=== PATIENT | female | born 1955 | race Native Hawaiian/Other Pacific Islander ===

== ENCOUNTER 2023-10-20 09:43 | Emergency (ER) | payer BC ==
[2023-10-20 10:15] VITALS: BP 138/81; O2SAT 98
[2023-10-20 10:42] LABS: RAPID STREP SCREEN Negative (Negative)
[2023-10-20 11:31] LABS: B. PARAPERTUSSIS- RESP PCR PAN NOT DETECTED; B. PERTUSSIS- RESP PCR PANEL NOT DETECTED; C. PNEUMONIAE- RESP PCR PANEL NOT DETECTED; CORONAVIRUS 229E-RESP PCR NOT DETECTED; CORONAVIRUS HKU1-RESP PCR NOT DETECTED; CORONAVIRUS NL63-RESP PCR NOT DETECTED; CORONAVIRUS OC43-RESP PCR NOT DETECTED; HUMAN METAPNEUMOVIRUS NOT DETECTED; INFLUENZA A- RESP PCR PANEL NOT DETECTED; INFLUENZA B - RESP PCR PANEL NOT DETECTED; M. PNEUMONIAE- RESP PCR PANEL NOT DETECTED; PARAINFLUENZA VIRUS 1 NOT DETECTED; PARAINFLUENZA VIRUS 2 NOT DETECTED; PARAINFLUENZA VIRUS 3 NOT DETECTED; PARAINFLUENZA VIRUS 4 NOT DETECTED; RHINOVIRUS/ENTEROVIRUS NOT DETECTED; RSV- RESP PCR PANEL NOT DETECTED
[2023-10-20 11:33] LABS: SARS-CoV-2 -RESP PCR PANEL DETECTED
--- NOTE | 2023-10-20 11:35 | ED Physician Documentation ---
PD HPI URI - Stated complaint Stated Complaint: SORE THROAT,COUGH,FATIGUE,FEVER - Chief complaint Chief Complaint: Heent - Additional information Additional information: 68-year-old female presents emergency department with her for flulike symptoms. Patient says that symptom onset was around the 15th after traveling recently. She complains of sore throat cough fever chills and fatigue. She says she took some at home test that were negative for COVID but wanted to have a further evaluation here in the emergency department to see if there is nothing else that she caught. No significant comorbidities no significant comorbidities no Pertinent past medical history she says overall she is feeling better. When offered Tylenol or ibuprofen or dexamethasone for her sore throat patient declines and says that they feel comfortable discharging knowing that they have COVID and that there is not significant mortality relation with the current strain that is going around. PD PAST MEDICAL HISTORY - Past Medical History Past Medical History: No - Past Surgical History Ortho: Hip replacement /[employer]: section, Other - Allergies Allergies/Adverse Reactions: Allergies Allergy/AdvReac Type Severity Reaction Status Date / Time No Known Drug Allergies Allergy Verified 10/20/23 10:10 - Social History Does the pt smoke?: No Smoking Status: Never smoker Does the pt drink ETOH?: Yes Does the pt have substance abuse?: No - Immunizations Immunizations are current?: Yes - POLST Patient has POLST: No PD ED PE NORMAL - Vitals Vital signs reviewed: Yes - General General: Alert and oriented X 3, No acute distress, Well developed/nourished - HEENT HEENT: Atraumatic - Neck Neck: Supple, no meningeal sign - Cardiac Cardiac: RRR - Respiratory Respiratory: No respiratory distress, Clear bilaterally - Abdomen Abdomen: Normal bowel sounds Results - Vitals Vitals: Vital Signs - 24 hr 10/20/23 10:06 Temperature 37.5 C Heart Rate 68 Respiratory 20 Rate Blood Pressure 138/81 H O2 Saturation 98 Oxygen O2 Source Room air - Labs Labs: Laboratory Tests 10/20/23 10/20/23 10:21 10:21 Nasal Adenovirus (PCR) NOT DETECTED Nasal B. parapertussis DNA (PCR) NOT DETECTED Nasal Coronavir 229E PCR NOT DETECTED Nasal Coronavir HKU1 PCR NOT DETECTED Nasal Coronavir NL63 PCR NOT DETECTED Nasal Coronavir OC43 PCR NOT DETECTED Nasal Enterovir/Rhinovir PCR NOT DETECTED Nasal Influenza B PCR NOT DETECTED Nasal Influenza A PCR NOT DETECTED Nasal Parainfluen 1 PCR NOT DETECTED Nasal Parainfluen 2 PCR NOT DETECTED Nasal Parainfluen 3 PCR NOT DETECTED Nasal Parainfluen 4 PCR NOT DETECTED Nasal RSV (PCR) NOT DETECTED Nasal B.pertussis DNA PCR NOT DETECTED Nasal C.pneumoniae (PCR) NOT DETECTED Darren Human Metapneumo PCR NOT DETECTED Nasal M.pneumoniae (PCR) NOT DETECTED Nasal SARS-CoV-2 (PCR) DETECTED A Group A Strep Rapid Negative PD Medical Decision Making - ED course ED course: 68-year-old female presents emergency department for upper respiratory infection symptoms that have been ongoing since 16 October. Patient reports overall her symptoms have significantly improved she did have positive for COVID-19 here in the emergency department she declines any need for dexamethasone for her sore throat she said that she has been taking Tylenol ibuprofen which has been helping. No nausea or vomiting. She also is wondering if she is safe to fly in 7 days I informed her that she will be out of the window for 1 we are recommending isolation. Patient feels better knowing that she has COVID there is no other illness that is causing these upper respiratory infection symptoms and feels safe for discharge at this time. Patient told to follow-up with her primary care provider and return precautions given. Departure - Departure Disposition: 01 Home, Self Care Clinical Impression: COVID-19 Instructions: ED Viral Syndrome Comments: Take Tylenol or Ibuprofen for pain and discomfort, drink plenty of fluids, eat a healthy well balanced diet while you recover from COVID. Forms: PCP List Discharge Date/Time: 10/20/23 11:47
== END 2023-10-20 11:47 | disposition home or self-care (01) ==
LOC: ED 09:43
DX: U07.1 COVID-19 (principal)
CPT/HCPCS: 87070; 87430; 87633; 99282; 99283